=== PATIENT | female | born 1995 | race Caucasian/White ===

== ENCOUNTER 2019-12-17 10:17 | Outpatient (REF) | payer OTHER, SELFPAY ==
[2019-12-17 12:10] LABS: MANUAL DIFF FLAG NO
[2019-12-17 12:17] LABS: Basophils Percent Auto 0.3 % (0-2); Eosinophils Absolute Auto 0.1 X10*3/uL (0.0-0.4); Eosinophils Percent Auto 0.6 % (0-4); Hematocrit 36.9 % (37-47); Hemoglobin 10.7 g/dl (12.0-16.0); Imm Gran Abs Auto 0.02 X10*3/uL (0.00-0.03); Imm Gran Pct Auto 0.2 % (0.0-0.4); Lymphocytes Absolute Auto 2.8 X10*3/uL (1.2-4.9); Lymphocytes Percent Auto 26.3 % (20-40); Mean Corpuscular Hemoglobin 20.8 pg (27.0-33.0); Mean Corpuscular Volume 71.7 fL (80-98); Mean Platelet Volume 12.9 fL (9.4-12.3); Monocytes Absolute Auto 0.6 X10*3/uL (0.1-1.2); Monocytes Percent Auto 5.7 % (2-11); Neutrophils Absolute Auto 7.1 X10*3/uL (2.0-8.3); Neutrophils Percent Auto 66.9 % (45-73); Platelet Count 286 X10*3/uL (160-400); Red Blood Count 5.15 X10*6/uL (4.20-5.50); Red Cell Distribution Width 13.8 % (11.0-16.0); White Blood Count 10.6 X10*3/uL (4.8-10.8)
[2019-12-17 12:36] LABS: Alanine Aminotransferase 19 U/L (0-31); Albumin Level 4.2 g/dL (3.5-5.0); Alkaline Phosphatase 59 U/L (39-117); Anion Gap 10 (12-20); Aspartate Amino Transferase 15 U/L (5-31); Bilirubin Total 0.4 mg/dL (0.0-1.0); Blood Urea Nitrogen 7 mg/dL (9-16); Calcium 8.8 mg/dL (8.4-10.2); Carbon Dioxide 25 mmol/L (22-29); Chloride 107 mmol/L (96-108); Cholesterol 130 mg/dL; Estimated Glomerular Filt Rate > 60; Glucose Fasting 80 mg/dL (60-99); HDL Cholesterol 37 mg/dL; Iron 71 mcg/dL (30-160); LDL Cholesterol Calculated 81 mg/dl; Percent Iron Saturation 20 % (15-50); Potassium 4.4 mmol/l (3.3-5.1); Sodium 138 mmol/L (135-145); Total Iron Binding Capacity 355 mcg/dL (228-428); Total Protein 7.3 g/dL (6.5-8.0); Triglycerides 62 mg/dL; Unsaturated Iron Binding 284 ug/dL
[2019-12-17 12:58] LABS: Ferritin 16 ng/mL (10-122); Thyroid Stimulating Hormone 0.73 mIU/mL (0.32-4.0)
== END 2019-12-17 10:18 | disposition home or self-care (01) ==
LOC: HO.LAB 10:17
PROVIDERS: PCP Physician Assistant; Visit Provider Physician Assistant
DX: Z13.29 Encounter for screening for other suspected endocrine disorder (principal); Z13.220 Encounter for screening for lipoid disorders; D50.8 Other iron deficiency anemias
CPT/HCPCS: 36415; 80053; 80061; 82728; 83540; 84443; 85025

== ENCOUNTER 2019-12-21 11:27 | Outpatient (REF) | payer OTHER, SELFPAY ==
--- NOTE | 2019-12-21 | US_ITS ---
EXAMINATION: ULTRASOUND PELVIS COMPLETE. CLINICAL INFORMATION: Hirsutism. Rule out PCOS. Previous right oophorectomy. COMPARISON: None TECHNIQUE: Transabdominal and transvaginal ultrasound of the pelvis is performed. FINDINGS: The uterus is retroverted and retroflexed measuring 11.2 cm in length, 5.3 cm in AP and 6.0 cm in transverse dimension. The uterus has homogeneous echotexture except for 2 tiny calcifications in the myometrium. The endometrial thickness is 1.2 cm with echogenic debris seen within the endometrial canal from ongoing menstruation and bleeding. Small nabothian cysts are seen in the cervix. The right ovary has been removed and not visualized. There is mild fullness in the right adnexa. Left ovary measures 2.9 x 2.3 x 2.3 cm and volume 8.1 mL. Small amount of free fluid is seen adjacent to the ovary. IMPRESSION: Unremarkable uterus except for 2 tiny calcifications in the myometrium. There is echogenic blood products seen within the endometrial canal from current menstruation. Small nabothian cysts in the cervix. Right ovary removed. Mild fullness of the right adnexa. Left ovary is unremarkable. Minimal free fluid adjacent to left ovary.
== END 2019-12-21 11:28 | disposition home or self-care (01) ==
LOC: HO.US 11:27
PROVIDERS: PCP Physician Assistant; Visit Provider Physician Assistant
DX: L68.0 Hirsutism (principal)
CPT/HCPCS: 76830; 76856

== ENCOUNTER 2020-03-21 08:49 | Outpatient (REF) | payer OTHER, SELFPAY ==
[2020-03-21 09:06] LABS: COVID-19 Test Negative (Negative); IDNOW Serial# 55D5AD1C
== END 2020-03-21 08:50 | disposition home or self-care (01) ==
LOC: HO.EMPCOV 08:49
PROVIDERS: Visit Provider Internal Medicine
DX: Z20.822 Contact with and (suspected) exposure to COVID-19 (principal)
CPT/HCPCS: 36415; 87635; C9803

== ENCOUNTER 2020-06-12 07:40 | Outpatient (REF) | payer OTHER, SELFPAY ==
[2020-06-12 09:04] LABS: COVID-19 Test Negative (Negative)
== END 2020-06-12 07:41 | disposition home or self-care (01) ==
LOC: HO.EMPCOV 07:40
PROVIDERS: Visit Provider Internal Medicine
DX: Z20.822 Contact with and (suspected) exposure to COVID-19 (principal)
CPT/HCPCS: 36415; 87635; C9803

== ENCOUNTER 2020-06-14 08:24 | Outpatient (REF) | payer OTHER, SELFPAY ==
[2020-06-14 15:18] LABS: CT PCR NOT DETECTED (Not Detect.); NG PCR NOT DETECTED (Not Detect.)
[2020-06-15 08:57] LABS: BV Int Neg Control Negative (Negative); BV Int Pos Control Positive (Positive)
== END 2020-06-14 08:25 | disposition home or self-care (01) ==
LOC: HO.LAB 08:24
PROVIDERS: Visit Provider Obstetrics & Gynecology
DX: Z01.419 Encounter for gynecological examination (general) (routine) without abnormal findings (principal); N97.9 Female infertility, unspecified
CPT/HCPCS: 87480; 87491; 87510; 87591; 87660

== ENCOUNTER → 2021-03-28 13:06 | Outpatient (BNVA) | payer SELFPAY | PROVIDERS: PCP Physician Assistant; Visit Provider Physician Assistant Medical ==

== ENCOUNTER 2021-04-03 09:28 | Outpatient (REF) | payer OTHER, SELFPAY ==
[2021-04-03 10:23] LABS: Hemoglobin 10.8 g/dl (12.0-16.0); Mean Corpuscular HGB Conc 28.4 g/dl (31.0-35.0); Mean Corpuscular Hemoglobin 20.4 pg (27.0-33.0); Mean Corpuscular Volume 71.7 fL (80.0-98.0); Mean Platelet Volume 12.1 fL (9.4-12.3); Platelet Count 272 X10*3/uL (160-400); Red Cell Distribution Width 13.9 % (11.0-16.0)
[2021-04-03 10:36] LABS: Estimated Average Glucose 88 mg/dL; Hemoglobin A1c % 4.7 %
[2021-04-03 11:16] LABS: Alanine Aminotransferase 15 U/L (0-31); Albumin Level 4.4 g/dL (3.5-5.0); Alkaline Phosphatase 54 U/L (39-117); Anion Gap 10 (12-20); Aspartate Amino Transferase 17 U/L (5-31); Bilirubin Total 0.5 mg/dL (0.0-1.0); Blood Urea Nitrogen 8 mg/dL (9-16); Calcium 9.6 mg/dL (8.4-10.2); Carbon Dioxide 28 mmol/L (22-29); Chloride 106 mmol/L (96-108); Estimated Glomerular Filt Rate > 60; Glucose Fasting 83 mg/dL (60-99); Iron 52 mcg/dL (30-160); Percent Iron Saturation 13 % (15-50); Potassium 4.6 mmol/L (3.3-5.1); Sodium 139 mmol/L (135-145); Total Iron Binding Capacity 395 mcg/dL (228-428); Total Protein 7.6 g/dL (6.5-8.0); Unsaturated Iron Binding 343 ug/dL
[2021-04-03 11:36] LABS: TSH reflex Free T4 0.63 uIU/mL (0.32-4.0)
== END 2021-04-03 09:29 | disposition home or self-care (01) ==
LOC: HO.LAB 09:28
PROVIDERS: PCP Physician Assistant; Visit Provider Physician Assistant
DX: I10 Essential (primary) hypertension (principal); D50.9 Iron deficiency anemia, unspecified; Z13.1 Encounter for screening for diabetes mellitus
CPT/HCPCS: 36415; 80053; 83036; 83540; 84443; 85027

== ENCOUNTER 2021-07-16 13:22 | Outpatient (REF) | payer OTHER, SELFPAY ==
[2021-07-16 16:44] LABS: Anion Gap 10 (12-20); Blood Urea Nitrogen 9 mg/dL (9-16); Calcium 9.5 mg/dL (8.4-10.2); Carbon Dioxide 26 mmol/L (22-29); Chloride 107 mmol/L (96-108); Estimated Glomerular Filt Rate > 60; Glucose Random 114 mg/dL (60-115); Potassium 4.1 mmol/L (3.3-5.1); Sodium 139 mmol/L (135-145)
[2021-07-16 17:08] LABS: TSH reflex Free T4 0.65 uIU/mL (0.32-4.0)
[2021-07-16 17:36] LABS: Influenza A PCR NEGATIVE (Negative); Influenza B PCR NEGATIVE (Negative); Resp Syncy Virus RNA Qual PCR NEGATIVE (Negative); SARS COV2 PCR INHOUSE NEGATIVE (Negative)
== END 2021-07-16 13:23 | disposition home or self-care (01) ==
LOC: HO.HMGCLDS 13:22
PROVIDERS: Nurse Practitioner Family; Visit Provider Physician Assistant
DX: R60.9 Edema, unspecified (principal); R53.83 Other fatigue
CPT/HCPCS: 0241U; 36415; 80048; 84443

== ENCOUNTER 2021-08-21 11:37 | Outpatient (REF) | payer OTHER, SELFPAY | END 2021-08-21 11:38 | disposition home or self-care (01) | LOC: HO.LNP 11:37 | PROVIDERS: Visit Provider Nurse Practitioner Family | DX: R10.9 Unspecified abdominal pain (principal); R31.29 Other microscopic hematuria | CPT/HCPCS: 87086 ==

== ENCOUNTER 2021-08-27 11:26 | Outpatient (REF) | payer OTHER, SELFPAY ==
[2021-08-27 14:39] LABS: CT PCR NOT DETECTED (Not Detect.); NG PCR NOT DETECTED (Not Detect.)
== END 2021-08-27 11:27 | disposition home or self-care (01) ==
LOC: HO.LAB 11:26
PROVIDERS: Visit Provider Advanced Practice Midwife
DX: Z01.419 Encounter for gynecological examination (general) (routine) without abnormal findings (principal); Z11.3 Encounter for screening for infections with a predominantly sexual mode of transmission; Z11.8 Encounter for screening for other infectious and parasitic diseases
CPT/HCPCS: 87491; 87591; 88142

== ENCOUNTER 2021-09-06 14:05 | Outpatient (REF) | payer OTHER, SELFPAY ==
--- NOTE | ~2021-09-06 | US_ITS ---
EXAMINATION: US DIAGNOSTIC ULTRASOUND BREAST, RIGHT CLINICAL INFORMATION: Fullness/thickening noted upper right breast at time of routine clinical exam. No palpable concern noted by patient. No discharge. Age 26. No prior breast imaging. TC score 16%. COMPARISON: None. TECHNIQUE: Ultrasound right breast is targeted to the upper breast 10:00 through 2:00 position. FINDINGS: There is no focal suspicious finding. There is no cystic or solid mass, architectural abnormality, duct ectasia, or edema in the soft tissue planes. Results are discussed with the patient at time of visit. US/US breast RT limited IMPRESSION: Normal study. ASSESSMENT: BI-RADS 1: Negative RECOMMENDATION: 1. Patient should be managed based on the clinical impression. If clinically indicated, further evaluation may be considered with surgical consult. Decision to proceed with biopsy should be based on clinical grounds and degree of clinical concern. 2. Otherwise, routine annual screening mammography, beginning age 40, or earlier as clinical risk factors warrant. This patient's information was entered into a reminder system with a target due date for their next mammogram.
== END 2021-09-06 14:06 | disposition home or self-care (01) ==
LOC: HO.MAMMO 14:05
PROVIDERS: Visit Provider Physician Assistant
DX: N63.15 Unspecified lump in the right breast, overlapping quadrants (principal)
CPT/HCPCS: 76642

== ENCOUNTER 2022-11-20 08:37 | Outpatient (AMB) | payer OTHER, SELFPAY ==
--- NOTE | 2022-11-20 09:34 | AM.OFFWIN_ITS ---
Intake Vital Signs 11/20/22 09:41 Height 5 ft 8 in Weight 188 lb BMI 28.6 BP 120/80 Blood Pressure Location Rt brachial Position Sitting Pulse 124 H Pulse Source Pulse Oximeter Temp 98.3 F Temp Source Oral Pulse Oximetry (%) 97 Oxygen Delivery Method Room Air Intake Visit Reasons: EP, fever, back pain, headache ([phone]) Intake Note: Patient here for headache, fever,dizziness,back pain for about 3 days. Patient Tobacco Use Status: Never used Tobacco Allergies No Known Allergies [No Known Allergies*] Allergy (Verified 11/20/22 09:34) Medication List - Last Reconciled 11/20/22 by Nadir Farr MD ferrous fumarate 325 mg PO DAILY 90 days PNV 119-iron fum-folic acid 29 mg iron- 1 mg 1 tab PO DAILY 90 days Do you need a note to return to daycare/school/sports/work: No HPI EP, fever, back pain, headache ([phone]) HPI Details Patient presents for a sick visit. Reporting symptoms of sinus congestion, sore throat and difficulty swallowing. Low-grade fever. No family member is sick. No recent travel. Patient reports symptoms of malaise and fatigue. 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 Sexual orientation: Straight/Heterosexual Gender identity: Female Cognitive needs: No Hearing needs: No Vision needs: Yes (glasses) Physical Exam Vital Signs: Last Vital Signs Temp 98.3 F 11/20/22 09:41 Pulse 124 H 11/20/22 09:41 BP 120/80 11/20/22 09:41 Pulse Ox 97 11/20/22 09:41 Oxygen Delivery Method Room Air 11/20/22 09:41 BMI result Body Mass Index 28.6 Const General: cooperative and healthy appearing Nutritional Appearance: well nourished Orientation/consciousness: patient oriented x3 Limitations: no limitations HEENT Head: Yes normal to inspection Eyes General: appearance normal, both eyes and all related structures Neck Neck: Yes normal visual inspection Chest Chest palpation & inspection: normal palpation of entire chest wall Resp Effort & Inspection: normal respiratory effort Neuro General: patient oriented x3 Assessment & Plan Assessment & Plan (1) Upper respiratory tract infection: Code(s): J06.9 - Acute upper respiratory infection, unspecified Qualifiers: URI type: unspecified viral URI Qualified Code(s): J06.9 - Acute upper respiratory infection, unspecified Plan: Antibiotics ordered. Increase fluid intake. Tylenol for aches and pains. If symptoms worsen, follow-up here for a recheck. Coding Level of Care Code Est Pt Level 3 (72469) Diagnoses Viral upper respiratory tract infection J06.9 URI type: unspecified viral URI
[2022-11-20 09:41] VITALS: BP 120/80; PULSE 124; TEMP 36.8; O2SAT 97; BMI 28.6
== END 2022-11-20 10:33 | disposition home or self-care (01) ==
PROVIDERS: PCP Physician Assistant; Visit Provider Internal Medicine
DX: J06.9 Acute upper respiratory infection, unspecified (principal)
CPT/HCPCS: 99213

== ENCOUNTER 2023-02-14 14:45 | Outpatient (AMB) | payer OTHER, SELFPAY ==
--- NOTE | 2023-02-14 15:08 | MHC.OFFVIS ---
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 Doing well with no concerns. She tries to eat healthy, no exercise. Regular monthly menses. Currently is sexually active. Not taking control, she is planning a future . History of IVF, right salpingectomy, left ectopic, SAB x2. She denies vaginal itching and irritation. STI screening offered; she declines. Denies family history of breast, ovarian or colon cancer. Last pap smear 2021, negative. [facility] Medical History (Updated 02/14/23 @ 15:26 by Elizabeth Desai CNM) Female infertility Anemia Surgical History (Updated 02/14/23 @ 15:27 by Elizabeth Desai CNM) History of right oophorectomy Family History Mother High blood pressure Pre-diabetes Father High blood pressure, Onset Age: 60 Heart attack Maternal Grandmother Colon cancer, Onset Age: 73 Uterine cancer Family/Other Breast cancer Social History Housing: House Alcohol intake: never Patient Tobacco Use Status: Never used Tobacco e-Cigarette/Vaping Use: Never Used Second Hand Smoke Exposure: No service: No Current occupational status: employed 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 Sexual orientation: Straight/Heterosexual Gender identity: Female Cognitive needs: No Hearing needs: No Vision needs: Yes (glasses) Female Reproductive History Menstrual Date of last menstrual period: 02/04/23 Total pregnancies: 3 Full term: 1 Number of Living Children: 1 Ab spontaneous: 2 Date of last pap smear: 08/28/21 Review of Systems Const All systems reviewed & are unremarkable except as noted in HPI and below Reports as per HPI Eyes Reports no additional complaints ENT Reports no additional complaints Card Reports no additional complaints Resp Reports no additional complaints GI Reports as per HPI and Reports no additional complaints Reports as per HPI Musc Reports no additional complaints Skin/Breast Reports as per HPI Neuro Reports no additional complaints Psych Reports no additional complaints Endo Reports no additional complaints Rolf/Lymph Reports no additional complaints Aller/Immun Reports no additional complaints Physical Exam Vital Signs: Last Vital Signs BP 106/60 02/14/23 15:10 BMI result Body Mass Index 28.9 Const General: cooperative, healthy appearing, no acute distress, well developed and alert Orientation/consciousness: patient oriented x3 HEENT Head: Yes normal to inspection Eyes General: appearance normal, both eyes and all related structures Neck Neck: Yes normal visual inspection Thyroid: Thyroid normal Chest Chest palpation & inspection: normal inspection of the chest and other (no puckering, dimpling, peau de orange, retraction, discharge, masses) Breast/axilla inspection: normal inspection of the breasts Breast/axilla palpation: normal palpation of the breasts Resp Effort & Inspection: normal respiratory effort GI Inspection: Yes normal to inspection Palpation (GI): Soft to palpation Rectal Exam - Female: deferred General: Yes bladder normal to palpation External Female Exam: normal external appearance and normal appearance of the urethra Speculum Exam - Vagina: normal appearance of the vagina, normal palpation and normal vaginal discharge Speculum Exam - Cervix: normal appearance of the cervix and normal palpation Bimanual exam- vagina & uterus: normal bimanual exam, normal palpation, uterine size normal, bladder normal to palpation, normal palpation and non-tender Bimanual Exam- Adnexa, other: no masses Skin General skin exam: no rashes or lesions noted Rashes: no rashes Neuro General: patient oriented x3 Cognition (Neuro): normal cognition Extrem General: Yes normal to inspection Psych Attitude: cooperative Thought process: Normal thought process present Assessment & Plan Assessment & Plan (1) Encounter for well woman exam with routine gynecological exam: Code(s): Z01.419 - Encounter for gynecological examination (general) (routine) without abnormal findings Plan Discussed: Current recommendations for pap smears per ASCCP guidelines. Breast awareness and periodic breast exams. Maintain a healthy lifestyle including a well balanced diet and routine exercise. Advised if she misses her period to do a home test if positive to call the office for evaluation right away. Continue with vitamins. All of her questions and concerns were addressed to the best of my ability. RTO in one year for annual loop drier operator examination. This note is constructed using voice recognition software. While every effort has been made to ensure accuracy, machinist mate errors may have been included. Medications: Refilled PNV 119-iron fum-folic acid 29 mg iron- 1 mg 1 tab PO DAILY 90 tabs 4RF 90 days Coding Level of Care Code Est Pt Prev Care 18-39y(80164) Diagnoses Encounter for well woman exam with routine gynecological exam Z01.419
[2023-02-14 15:10] VITALS: BP 106/60; BMI 28.9
== END 2023-02-14 15:35 | disposition home or self-care (01) ==
LOC: HO.HWS 14:45
PROVIDERS: PCP Physician Assistant; Visit Provider Advanced Practice Midwife
DX: Z01.419 Encounter for gynecological examination (general) (routine) without abnormal findings (principal)
CPT/HCPCS: 99395

== ENCOUNTER → 2023-02-14 14:45 | Outpatient (BNVA) | payer OTHER, SELFPAY | PROVIDERS: PCP Physician Assistant; Visit Provider Advanced Practice Midwife | DX: Z01.419 Encounter for gynecological examination (general) (routine) without abnormal findings (principal) | CPT/HCPCS: 99395 ==

== ENCOUNTER 2023-05-21 10:20 | Outpatient (AMB) | payer OTHER, SELFPAY ==
--- NOTE | 2023-05-21 10:20 | MHC.PC.OV ---
Intake Visit Reasons: constant dizziness/? vertigo Behavioral Health Associate Required: No Information Interpreted: non-clinical & clinical Pediatric Clinical Nurse Specialist: Not Required per policy Accompanied by: Self / Same As Patient Allergies No Known Allergies [No Known Allergies*] Allergy (Verified 05/21/23 10:21) Tobacco use date assessed: 05/21/23 Dental Screening Dental Screen Date: 05/21/23 Did you have a dental visit in the last 12 months?: Yes Did you have a dental problem in the last 6 months where you did not have access to dental care?: No Was dental information given to patient?: Patient has dentist HPI constant dizziness/? vertigo HPI Details Patient is a 27-year-old female being evaluated today via telephone only. Patient has a past medical history significant for iron-deficiency anemia. She reports since yesterday she has been feeling dizzy since she is gotten up in the morning. She does report the dizziness does get worse with changes in head Movements and body position. She has not tried any medication at this time. Otherwise does not have any visual disturbances, facial droop, focal neurological deficits or slurred speech. 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 1. Little interest or pleasure in doing things: not at all 2. Feeling down, depressed, or hopeless: not at all 3. Trouble falling or staying asleep, or sleeping too much: not at all 4. Feeling tired or having little energy: not at all 5. Poor appetite or overeating: not at all 6. Feeling bad about yourself - or that you are a failure or have let yourself or your family down: not at all 7. Trouble concentrating on things, such as reading the newspaper or watching television: not at all 8. Moving or speaking so slowly that other people could have noticed. Or the opposite - being so fidgety or restless that you have been moving around a lot more than usual: not at all 9. Thoughts that you would be better off or of hurting yourself in some way: not at all Total score: 0 Depression Screening Interpretation: Negative Depression Screening Done: Yes 27895 - PHQ-9 Billing: Yes Source: Developed by Drs. Tyrone Beltran, Anna Rodríguez, Cooper Vela and colleagues, with an educational larissa from [email or web address]. Thrive Questionnaire Date Thrive assessed: 05/21/23 I am a: Patient What is your living situation today?: I have a steady place to live Within the past 12 months, did the food you bought not last and you didn't have the money to get more?: Never true Within the past 12 months, did you worry whether your food would run out before you got money to buy more?: Never true Do you have trouble paying for medicines?: No Do you have trouble getting transportation to medical appointments?: No Do you have trouble paying your heating and electricity bill?: No Do you have trouble taking care of your child, family member or friend?: No Do you have trouble with day-to-day activities such as bathing, preparing meals, shopping, managing finances, etc.?: No Are you currently unemployed and looking for a job?: No Are you interested in more education?: No Please select the resources that you would like help with: None Currently or been in a relationship where the following occur: no concerns reported THRIVE Score: 0 AUDIT C Alcohol Use Questionnaire (AUDIT-C) 1. How often do you have a drink containing alcohol?: Never 3. How often do you have six or more drinks on one occasion?: Never Total Score: 0 JOSE-7 AMB Questionnaire JOSE-7 Date JOSE - 7 assessed: 05/21/23 Feeling nervous, anxious, or on edge: 0 = Not at all Not being able to stop or control worryin = Not at all Worrying too much about different things: 0 = Not at all Trouble relaxin = Not at all Being so restless that it is hard to sit still: 0 = Not at all Becoming easily annoyed or irritable: 0 = Not at all Feeling afraid as if something awful might happen: 0 = Not at all Total JOSE-7 score (0-4 normal; 5-9 mild; 10-14 moderate; 15-21 severe): 0 Source: Developed by Drs. Tyrone Beltran, Anna Rodríguez, Cooper Vela and colleagues, with an educational larissa from [email or web address]. JOSE-7 Assessment Billing JOSE-7 Assessment Tool: JOSE-7 Assessment 81923 Review of Systems Const Denies headache(s) Eyes Denies loss of vision ENT Reports vertigo, Reports dizziness, Denies headache(s) and Denies sore throat Card Denies chest pain, Denies leg edema and Denies lightheadedness Resp Denies cough, Denies hemoptysis and Denies wheezing GI Denies abdominal pain, Denies melena, Denies constipation, Denies diarrhea and Denies vomiting Denies urinary frequency, Denies dysuria and Denies urinary urgency Musc Denies arthralgias, Denies joint swelling, Denies numbness and Denies tingling Neuro Denies behavioral changes, Reports vertigo, Reports dizziness, Denies headache(s), Denies loss of vision, Denies memory loss, Denies numbness and Denies tingling Psych Denies anxiety, Denies behavioral changes, Denies depression, Denies memory loss and Denies panic attacks Rolf/Lymph Denies easy bleeding and Denies easy bruising Aller/Immun Denies wheezing Physical exam (Primary Care) Tobacco/Smoking Status: Tobacco use Status Tobacco use date assessed 05/21/23 05/21/23 10:22 Patient Tobacco Use Status Never used Tobacco 05/21/23 10:22 e-Cigarette/Vaping Use Never Used 05/21/23 10:22 PHQ-9: PHQ-9 Score PHQ-9: Total score 0 05/21/23 10:22 Depression Screening Interpretation: Negative Thrive Assessment: Date of Thrive Assessment Date Thrive assessed 05/21/23 05/21/23 10:22 Currently or been in a relationship where the following occur: no concerns reported Telehealth Telehealth Location of provider rendering services: practice address Location of patient: address on file Patient Identification confirmed using: Name, : Yes Telehealth method: voice only Patient verbally consented to treatment: Yes Patient verbally consented to billing insurance company: Yes Patient informed of any privacy concerns related to visit: Yes Minutes spent on Phone/Video with Pt.: 11 Assessment and Plan Assessment & Plan (1) Vertigo: Code(s): R42 - Dizziness and giddiness Plan: Patient's signs and symptoms most consistent with a benign positional paroxysmal vertigo. Will supply patient with meclizine to use temporarily. Advised on Quentin maneuvers to be done at home if fails will consider formal vestibular therapy. Will also send for labs to evaluate her blood levels as she does have history of iron-deficiency anemia. Orders: Orders IRON PROFILE Today D50.9 - Iron deficiency anemia, unspecified Complete Blood Count no Diff Today D50.9 - Iron deficiency anemia, unspecified Basic Metabolic Panel Today R42 - Dizziness and giddiness Medications: New meclizine 25 mg PO TID 14 days 42 tabs 0RF R42 - Dizziness and giddiness Coding Level of Care Code Tele Est Pt Level 3 (06534) Diagnoses Vertigo R42 Additional Codes JOSE-7 Assessment Billing - JOSE-7 Assessment Tool: JOSE-7 Assessment 43835 ([id number])
== END 2023-05-21 12:22 | disposition home or self-care (01) ==
LOC: HO.HMGH 10:20
PROVIDERS: PCP Physician Assistant; Visit Provider Physician Assistant
DX: R42 Dizziness and giddiness (principal)
CPT/HCPCS: 99213

== ENCOUNTER 2023-05-22 15:22 | Outpatient (REF) | payer OTHER, SELFPAY ==
[2023-05-22 16:17] LABS: Hemoglobin 11.8 g/dl (12.0-16.0); Mean Corpuscular HGB Conc 29.5 g/dl (31.0-35.0); Mean Corpuscular Hemoglobin 21.1 pg (27.0-33.0); Mean Corpuscular Volume 71.6 fL (80.0-98.0); Mean Platelet Volume 11.8 fL (9.4-12.3); Platelet Count 257 X10*3/uL (160-400); Red Blood Count 5.59 X10*6/uL (4.20-5.50); Red Cell Distribution Width 14.3 % (11.0-16.0); White Blood Count 9.1 X10*3/uL (4.8-10.8)
[2023-05-22 16:38] LABS: Anion Gap 14 (12-20); Blood Urea Nitrogen 9 mg/dL (9-16); Calcium 9.8 mg/dL (8.4-10.2); Carbon Dioxide 25 mmol/L (22-29); Chloride 105 mmol/L (96-108); Estimated Glomerular Filt Rate > 60; Glucose Random 94 mg/dL (60-115); Iron 70 mcg/dL (30-160); Percent Iron Saturation 25 % (15-50); Potassium 3.7 mmol/L (3.3-5.1); Sodium 140 mmol/L (135-145); Total Iron Binding Capacity 275 mcg/dL (228-428); Unsaturated Iron Binding 205 ug/dL
== END 2023-05-22 15:23 | disposition home or self-care (01) ==
LOC: HO.LAB 15:22
PROVIDERS: PCP Physician Assistant; Visit Provider Physician Assistant
DX: D50.9 Iron deficiency anemia, unspecified (principal); R42 Dizziness and giddiness
CPT/HCPCS: 36415; 80048; 83540; 85027

== ENCOUNTER 2023-09-26 14:24 | Outpatient (AMB) | payer OTHER, SELFPAY ==
[2023-09-26 14:28] VITALS: BP 116/68; BMI 27.1
--- NOTE | 2023-09-26 14:28 | MHC.OFFVIS ---
Vital Signs 09/26/23 14:28 Height 5 ft 8 in Weight 178 lb BMI 27.1 BP 116/68 Intake Visit Reasons: Control Consult Compensation Manager Required: No Compensation Manager Services: Compensation Manager Present Information Interpreted: clinical only Sieve Maker: Sieve Maker Present Allergies No Known Allergies [No Known Allergies*] Allergy (Verified 09/26/23 14:30) Medication List - Last Reconciled 09/26/23 by Lizet Peoples CNM aspirin 81 mg PO DAILY ferrous fumarate 325 mg PO DAILY 90 days levothyroxine (Synthroid) 25 mcg PO DAILY PNV 119-iron fum-folic acid 29 mg iron- 1 mg 1 tab PO DAILY 90 days Is last menstrual period known: Yes Last menstrual period: 09/22/23 HPI HPI Control Consult: Details: Patient is here to discuss control. The last visit in her chart reference to history of infertility and that she was going to go to [facility] for IVF. She tells me that she went to [facility] infertility had IU salas x3 and IBS they could not find the cause of her infertility there was nothing wrong with her tubes. She eventually did get but she had a miscarriage and they were able to do genetic studies and said the baby was normal in female in no cause was found she miscarried at 3 months. She later on got as again and had an ectopic . After that she really wanted to get so she went to the [place] and she saw specialists down there who did a full evaluation on her and told her that she had PCOS and also that she had a thyroid issue and she ended up with a thyroid biopsy and she is on thyroid medication now she was also found to have a blood clotting disorder and she is now on baby aspirin every day to manage this. She was told that when she gets she will need injections. She is working on losing weight she and her broke up she said the relationship had challenges anyway and says that she really really want to the baby at time she thinks that she would like to try for a baby again maybe next year but she is with a new partner now and while things are good she thinks this is not the right time yet. She was thinking maybe about control pills she had had the hormone free IUD for many years in the past and she got her regular periods with it she is aware of when she ovulates because of her length of time trying for a . She gets her periods about every 29 days she last started her period on this past Friday this is now day 5 of cycle today. She does not have migraine headaches she does not have any other contraindications who OCPs because she is trying to lose weight and not gain it Depo-Provera and Nexplanon would not be recommended because she is thinking about possibly trying for another within the year a Mirena IU S may simply delay return to fertility and it would take a while to order a ParaGard IUD though that maybe consideration for her future as well. Because of her clotting issues I did discuss the concern that it would be salas to avoid combination control pills because of a relative contraindication. Therefore the best alternative for now would probably be either condoms or progestin only control pills I did review with her the signs of a blood clot and the risks of a thromboembolic event. And if she ever got any symptoms she should go the emergency room show the pills she is on and show them her phone with the labs from the [facility] as well. She intends to make an appointment with her primary care provider Isak Thompson very soon and have a full visit with him so that he can be apprised of all of her new found information is well. She is going to start the control pills today 1 pill every single day, had recommend to her that when she wants to get she just stops the control pills at the end of a pack. I review that these pills do not dictate when she is going to get a PA and they are rather on forgiving in terms of missed pills. If she is going to be seeing her primary within the next 3 months that was suffice because her blood pressure will be taken then periods in addition should she ever get she should seek care [facility] right away and if she did decide that she needed assistance with fertility she should return to [facility] which I believe is now aligned with [facility]. She is continuing on her multivitamins with folic acid as well. [facility] Medical History (Updated 09/26/23 @ 15:37 by Lizet Peoples CNM) Female infertility Anemia Surgical History (Updated 09/26/23 @ 15:17 by Lizet Peoples CNM) History of right oophorectomy Family History Mother High blood pressure Pre-diabetes Father High blood pressure, Onset Age: 60 Heart attack Maternal Grandmother Colon cancer, Onset Age: 73 Uterine cancer Family/Other Breast cancer Social History Housing: House Alcohol intake: never Patient Tobacco Use Status: Never used Tobacco e-Cigarette/Vaping Use: Never Used Second Hand Smoke Exposure: No service: No Current occupational status: employed 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 Sexual orientation: Straight/Heterosexual Gender identity: Female Cognitive needs: No Hearing needs: No Vision needs: Yes (glasses) Female Reproductive History Menstrual Duration of menses: 3-5 days Date of last menstrual period: 09/22/23 control method: none Total pregnancies: 3 Full term: 1 Date of last pap smear: 08/28/21 (neg,2019,WNL) History of abnormal pap smear: No Physical Exam Vital Signs: Last Vital Signs BP 116/68 09/26/23 14:28 BMI result Body Mass Index 27.1 Assessment & Plan Assessment & Plan (1) Female infertility: Comment: having IVF in October at [facility],(states IUI and IVF did not work, then got miscarried genetics studies said it was female, then she had ectopic, thin went for full eval in the [place] was this past year, currently desires contraception (09/26/23.) was told [place] had clotting disorder and [place], has her labs in her phone. Code(s): N97.9 - Female infertility, unspecified Category: Medical (2) PCOS (polycystic ovarian syndrome): Code(s): E28.2 - Polycystic ovarian syndrome Category: Medical (3) Blood clotting disorder: Comment: Some of her anticardiolipin antibodies among other tests were abnormal, done in the [place], results on her phone patient has been told to take a baby aspirin every day which she is.. Code(s): D68.9 - Coagulation defect, unspecified Category: Medical (4) Infertility: Category: Medical (5) control counseling: Code(s): Z30.09 - Encounter for other general counseling and advice on contraception Category: Medical (6) Counseling for initiation of control method: Code(s): Z30.09 - Encounter for other general counseling and advice on contraception Category: Medical Plan Patient is here to discuss control. The last visit in her chart reference to history of infertility and that she was going to go to [facility] for IVF. She tells me that she went to [facility] infertility had IU salas x3 and IBS they could not find the cause of her infertility there was nothing wrong with her tubes. She eventually did get but she had a miscarriage and they were able to do genetic studies and said the baby was normal in female in no cause was found she miscarried at 3 months. She later on got as again and had an ectopic . After that she really wanted to get so she went to the [facility] and she saw specialists down there who did a full evaluation on her and told her that she had PCOS and also that she had a thyroid issue and she ended up with a thyroid biopsy and she is on thyroid medication now she was also found to have a blood clotting disorder and she is now on baby aspirin every day to manage this. She was told that when she gets she will need injections. She is working on losing weight she and her broke up she said the relationship had challenges anyway and says that she really really want to the baby at time she thinks that she would like to try for a baby again maybe next year but she is with a new partner now and while things are good she thinks this is not the right time yet. She was thinking maybe about control pills she had had the hormone free IUD for many years in the past and she got her regular periods with it she is aware of when she ovulates because of her length of time trying for a . She gets her periods about every 29 days she last started her period on this past Friday this is now day 5 of cycle today. She does not have migraine headaches she does not have any other contraindications who OCPs because she is trying to lose weight and not gain it Depo-Provera and Nexplanon would not be recommended because she is thinking about possibly trying for another within the year a Mirena IU S may simply delay return to fertility and it would take a while to order a ParaGard IUD though that maybe consideration for her future as well. Because of her clotting issues I did discuss the concern that it would be salas to avoid combination control pills because of a relative contraindication. Therefore the best alternative for now would probably be either condoms or progestin only control pills I did review with her the signs of a blood clot and the risks of a thromboembolic event. And if she ever got any symptoms she should go the emergency room show the pills she is on and show them her phone with the labs from the [place] as well. She intends to make an appointment with her primary care provider Isak Thompson very soon and have a full visit with him so that he can be apprised of all of her new found information is well. She is going to start the control pills today 1 pill every single day, had recommend to her that when she wants to get she just stops the control pills at the end of a pack. I review that these pills do not dictate when she is going to get a PA and they are rather on forgiving in terms of missed pills. If she is going to be seeing her primary within the next 3 months that was suffice because her blood pressure will be taken then periods in addition should she ever get she should seek care [facility] right away and if she did decide that she needed assistance with fertility she should return to [facility] which I believe is now aligned with [facility]. She is continuing on her multivitamins with folic acid as well. Medications: New norethindrone (contraceptive) 0.35 mg PO DAILY 84 tabs 3RF Coding Level of Care Code Est Pt Level 3 (76349) Diagnoses Female infertility N97.9 PCOS (polycystic ovarian syndrome) E28.2 Blood clotting disorder D68.9 Infertility control counseling Counseling for initiation of control method
== END 2023-09-26 15:12 | disposition home or self-care (01) ==
LOC: HO.HWSM 14:24
PROVIDERS: PCP Physician Assistant; Visit Provider Advanced Practice Midwife
DX: N97.9 Female infertility, unspecified (principal); E28.2 Polycystic ovarian syndrome; D68.9 Coagulation defect, unspecified; Z30.09 Encounter for other general counseling and advice on contraception
CPT/HCPCS: 99213

== ENCOUNTER → 2023-09-26 14:24 | Outpatient (BNVA) | payer OTHER, SELFPAY | PROVIDERS: PCP Physician Assistant; Visit Provider Advanced Practice Midwife | DX: Z30.09 Encounter for other general counseling and advice on contraception (principal); N97.9 Female infertility, unspecified; E28.2 Polycystic ovarian syndrome; D68.9 Coagulation defect, unspecified; Z90.721 Acquired absence of ovaries, unilateral | CPT/HCPCS: 99212 ==

== ENCOUNTER 2023-11-12 15:54 | Outpatient (AMB) | payer OTHER, SELFPAY ==
--- NOTE | 2023-11-12 15:56 | A.OFFPC_ITS ---
Vital Signs 11/12/23 16:05 Height 5 ft 8 in Weight 164 lb 4 oz BMI 25.0 BP 118/68 Blood Pressure Location Lt brachial Position Sitting Intake Visit Reasons: annual exam Intake Note: Patient is here today for a physical. Consulting Property Manager Required: No Accompanied by: Self / Same As Patient Allergies No Known Allergies [No Known Allergies*] Allergy (Verified 11/12/23 16:11) Medication List - Last Reconciled 11/12/23 by Isak Thompson PA-C aspirin 81 mg PO DAILY ferrous fumarate 325 mg PO DAILY 90 days norethindrone (contraceptive) 0.35 mg PO DAILY PNV 119-iron fum-folic acid 29 mg iron- 1 mg 1 tab PO DAILY 90 days selenium 200 mcg PO DAILY Tobacco use date assessed: 05/21/23 Dental Screening Dental Screen Date: 05/21/23 HPI annual exam HPI Details Patient is a 28-year-old female here today for annual physical . . Sherrell ocampo has a past history significant for iron deficiency anemia. Currently undergoing infertility treatment and has gotten IVF. She has had multiple miscarriages. Patient had travel to [facility] and had infertility workup that did reveal a thyroid nodule and was started on selenium 200 mcg. Was also found to have a thrombophilia to which she was started baby aspirin. She is interested in establishing care with a knitter mechanic [place]. Due to what is been going on in her life she has been very depressed, today's PHQ-9 score fairly high. She is interested in mental health therapy and starting medication for depression. Will start sertraline 50 mg and follow-up in the next 4-5 weeks to evaluate the effectiveness of medication for ? .. CABIN SERVICE AGENT: [place] CABIN SERVICE AG[place] [facility] [place] ? Vaccine: UTD with Tdap,? UTD with COVID , need flu vaccine. [facility] Medical History Female infertility Anemia Surgical History History of right oophorectomy Family History (Updated 11/12/23 @ 16:22 by Isak Thompson PA-C) Mother High blood pressure Pre-diabetes Father High blood pressure, Onset Age: 60 Heart attack Blood clotting disorder Maternal Grandmother Colon cancer, Onset Age: 73 Uterine cancer Family/Other Breast cancer Maternal Grandfather Blood clotting disorder Social History Housing: House Alcohol intake: never Patient Tobacco Use Status: Never used Tobacco e-Cigarette/Vaping Use: Never Used Second Hand Smoke Exposure: No service: No Current occupational status: employed 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 1. Little interest or pleasure in doing things: more than half the days 2. Feeling down, depressed, or hopeless: nearly every day 3. Trouble falling or staying asleep, or sleeping too much: nearly every day 4. Feeling tired or having little energy: nearly every day 5. Poor appetite or overeating: nearly every day 6. Feeling bad about yourself - or that you are a failure or have let yourself or your family down: more than half the days 7. Trouble concentrating on things, such as reading the newspaper or watching television: nearly every day 8. Moving or speaking so slowly that other people could have noticed. Or the opposite - being so fidgety or restless that you have been moving around a lot more than usual: not at all 9. Thoughts that you would be better off or of hurting yourself in some way: not at all Total score: 19 Depression Screening Interpretation: Positive Depression Screening Follow-up: Existing condition, New Medication prescribed and Community Mental Health Worker F/U Depression Screening Done: Yes 07248 - PHQ-9 Billing: Yes Source: Developed by Drs. Tyrone Beltran, Anna Rodríguez, Cooper Vela and colleagues, with an educational larissa from [employer]. Thrive Questionnaire Date Thrive assessed: 11/12/23 I am a: Patient What is your living situation today?: I have a steady place to live Within the past 12 months, did the food you bought not last and you didn't have the money to get more?: Never true Within the past 12 months, did you worry whether your food would run out before you got money to buy more?: Never true Do you have trouble paying for medicines?: No Do you have trouble getting transportation to medical appointments?: No Do you have trouble paying your heating and electricity bill?: No Do you have trouble taking care of your child, family member or friend?: No Do you have trouble with day-to-day activities such as bathing, preparing meals, shopping, managing finances, etc.?: No Are you currently unemployed and looking for a job?: No Are you interested in more education?: Yes Please select the resources that you would like help with: Food and [employer] Currently or been in a relationship where the following occur: No concerns reported THRIVE Score: 0 AUDIT C Alcohol Use Questionnaire (AUDIT-C) 1. How often do you have a drink containing alcohol?: Never Total Score: 0 JOSE-7 AMB Questionnaire JOSE-7 Date JOSE - 7 assessed: 11/12/23 Feeling nervous, anxious, or on edge: 1 = Several days Not being able to stop or control worryin = Several days Worrying too much about different things: 1 = Several days Trouble relaxin = Several days Being so restless that it is hard to sit still: 0 = Not at all Becoming easily annoyed or irritable: 1 = Several days Feeling afraid as if something awful might happen: 0 = Not at all Total JOSE-7 score (0-4 normal; 5-9 mild; 10-14 moderate; 15-21 severe): 5 Source: Developed by Drs. Tyrone Beltran, Anna Rodríguez, Cooper Vela and colleagues, with an educational larissa from [employer]. JOSE-7 Assessment Billing JOSE-7 Assessment Tool: JOSE-7 Assessment 63147 Review of Systems Const Denies body aches, Denies chills, Denies excessive sweating, Denies fatigue, Denies fever(s) and Denies headache(s) Eyes Denies blurry vision ENT Denies dysphagia, Denies vertigo, Denies dizziness, Denies headache(s), Denies hearing loss and Denies tinnitus Card Denies chest pain, Denies chest pain with activity, Denies syncope, Denies irregular heart rhythm and Denies dyspnea Resp Denies chest congestion, Denies cough, Denies hemoptysis, Denies dyspnea and Denies wheezing GI Denies abdominal pain, Denies melena, Denies hematochezia, Denies coffee ground emesis, Denies dysphagia, Denies diarrhea, Denies nausea and Denies vomiting Denies urinary frequency, Denies dysuria, Denies urinary hesitancy and Denies urinary urgency Musc Denies arthralgias, Denies limited range of motion, Denies muscle cramps and Denies muscle weakness Skin/Breast Denies rash and Denies skin ulcer Neuro Denies Abnormal speech present, Denies confusion, Denies vertigo, Denies dizziness, Denies syncope, Denies headache(s), Denies memory loss and Denies seizure-like activity Psych Denies anxiety, Denies confusion, Denies depression, Denies memory loss, Denies panic attacks and Denies paranoia Endo Denies excessive sweating, Denies fatigue, Denies flushing, Denies polydipsia and Denies polyuria Aller/Immun Denies wheezing Physical exam (Primary Care) Tobacco/Smoking Status: Tobacco use Status Tobacco use date assessed 05/21/23 11/12/23 15:58 Patient Tobacco Use Status Never used Tobacco 11/12/23 15:58 e-Cigarette/Vaping Use Never Used 11/12/23 15:58 PHQ-9: PHQ-9 Score PHQ-9: Total score 19 11/12/23 15:58 Depression Screening Interpretation: Positive Depression Screening Follow-up: Existing condition, New Medication prescribed and Community Mental Health Worker F/U Thrive Assessment: Date of Thrive Assessment Date Thrive assessed 11/12/23 11/12/23 15:58 Currently or been in a relationship where the following occur: No concerns reported Const General: cooperative, comfortable, no acute distress, alert and awake; No confusion Orientation/consciousness: oriented to person, oriented to place, patient oriented x3 and No confusion HENMT Head: Yes normocephalic Ears: external ears normal and TM's normal bilaterally Face and sinus: No sinus tenderness Mouth: Normal oral and palatal mucosa present and tongue normal Teeth and gingiva: dentition normal and gingiva normal Throat: Yes posterior oropharynx normal, Yes tonsils normal and Yes uvula midline Eyes Conjunctivae: conjunctivae normal Sclerae: sclerae normal Pupils: Equal, round and reactive pupils present EOM: EOMs intact bilaterally Direct Ophthalmoscopy: No no photophobia Neck Neck: Yes no lymphadenopathy, No tender and Yes no JVD Thyroid: Thyroid normal Carotids: no bruits Chest Chest palpation & inspection: no tenderness Resp Effort & Inspection: normal respiratory effort, no audible wheezes, not labored and no stridor Auscultation: no crackles, no rales, no rhonchi and no wheezes Cardio Jugular venous distension: no JVD Rate: regular rate, not bradycardic and not tachycardic Rhythm: regular rhythm Bruits: no carotid bruits Peripheral pulses: Peripheral pulses 2+ throughout GI Inspection: Yes normal to inspection, No abdominal wall ecchymosis and No visi ble herniation Palpation (GI): Soft to palpation, nontender, no guarding, not rigid and No hepatosplenomegaly present Auscultation: normoactive bowel sounds General: Yes no CVA tenderness Back/Spine/Pelvis Back: no CVA tenderness and No back tenderness Cervical Spine: cervical ROM normal Thoracic/Lumbar Spine: thoracic and lumbar spine normal to inspection, straight leg raise negative bilaterally, No thoraco-lumbar ROM limited and No lumbar spinal tenderness Skin Lesions: no lesions Rashes: no rashes Wounds: no wounds Neuro General: oriented to person, oriented to place, patient oriented x3, CN's II-XI intact bilaterally and No confusion Cranial nerves: Yes Equal, round and reactive pupils present and Yes Normal accommodation reflex present Cognition (Neuro): normal cognition Speech: No Abnormal speech present Gait exam (Neuro): Normal gait present Motor exam (neuro): 5/5 motor strength present throughout Extrem Right upper extremity: full ROM; no cyanosis Left upper extremity: full ROM; no cyanosis Right lower extremity: no edema Left lower extremity: no edema Psych Appearance: grossly normal Mental Status: mental status grossly normal Affect: normal affect Attitude: cooperative Thought process: Normal thought process present Assessment and Plan Assessment & Plan (1) Annual physical exam: Code(s): Z00.00 - Encounter for general adult medical examination without abnormal findings (2) Thyroid nodule: Code(s): E04.1 - Nontoxic single thyroid nodule Plan: Patient was found to a large thyroid nodule while being worked up in [facility] for infertility. Her TSH has been stable. She was started (3) Thrombophilia: Code(s): D68.59 - Other primary thrombophilia Plan: Patient was found to have a thrombophilia will pain worked up for infertility in [facility]. She was started on 81 mg aspirin (4) Female infertility: Comment: having IVF in October at [facility],(states IUI and IVF did not work, then got miscarried genetics studies said it was female, then she had ectopic, thin went for full eval [place] [facility] [place] was this past year, currently desires contraception (09/26/23.) was told she had clotting disorder and [place], has her labs in her phone. Code(s): N97.9 - Female infertility, unspecified Plan: As per HPI patient got infertility workup in [facility] and found to have a thrombophilia. She does have a family history of blood clotting disorder. She would like follow-up with Hematology here in the [place]. She is now on aspirin 81 mg daily (5) MDD (major depressive disorder), recurrent episode, moderate: Code(s): F33.1 - Major depressive disorder, recurrent, moderate Plan: Patient's PHQ-9 score positive for major depression which has been a new were condition for her. She is interested in mental health medication and to health therapy. Will try to set her up with a mental health therapist CYNTH[place]. She is willing to try sertraline 50 mg and follow-up in 5 weeks to evaluate effectiveness. Orders: Orders Complete Blood Count no Diff Today D68.59 - Other primary thrombophilia Comprehensive [place]. Panel Fast Today Z13.1 - Encounter for screening for diabetes mellitus TSH reflex Free T4 Today E04.1 - Nontoxic single thyroid nodule Parathyroid Hormone Intact Today E04.1 - Nontoxic single thyroid nodule IRON PROFILE Today D50.9 - Iron deficiency anemia, unspecified, D68.59 - Other primary thrombophilia Referrals Counseling Referral F33.1 - Major depressive disorder, recurrent, moderate Hematology & Oncology Referral D68.59 - Other primary thrombophilia Medications: New sertraline 50 mg PO DAILY 30 days 30 tabs 2RF F33.1 - Major depressive disorder, recurrent, moderate Coding Level of Care Code Est Pt Prev Care [id number]([id number]) Diagnoses Annual physical exam Z00.00 Thyroid nodule E04.1 Thrombophilia D68.59 Female infertility N97.9 MDD (major depressive disorder), recurrent episode, moderate F33.1 Additional Codes JOSE-7 Assessment Billing - JOSE-7 Assessment Tool: JOSE-7 Assessment [id number] ([id number])
[2023-11-12 16:05] VITALS: BP 118/68; BMI 25.0
== END 2023-11-12 16:25 | disposition home or self-care (01) ==
PROVIDERS: PCP Physician Assistant; Visit Provider Physician Assistant
DX: Z00.00 Encounter for general adult medical examination without abnormal findings (principal); E04.1 Nontoxic single thyroid nodule; D68.59 Other primary thrombophilia; N97.9 Female infertility, unspecified; F33.1 Major depressive disorder, recurrent, moderate
CPT/HCPCS: 96127; 99395

== ENCOUNTER → 2024-03-30 07:55 | Outpatient (BNV) | payer OTHER, SELFPAY | PROVIDERS: PCP Physician Assistant; Referring Provider Physician Assistant; Visit Provider Internal Medicine Medical Oncology | DX: D68.59 Other primary thrombophilia (principal); D50.9 Iron deficiency anemia, unspecified | CPT/HCPCS: 99213 ==

== ENCOUNTER 2024-04-19 13:33 | Outpatient (AMB) | payer OTHER, SELFPAY ==
--- NOTE | 2024-04-19 13:42 | MHC.OFFWIV ---
Intake Vital Signs 04/19/24 13:43 Weight 188 lb BP 108/70 Blood Pressure Location Lt brachial Position Sitting Pulse 68 Pulse Source Pulse Oximeter Temp 98.5 F Temp Source Oral Pulse Oximetry (%) 98 Oxygen Delivery Method Room Air Intake Visit Reasons: EP cough, sore throat, nose bleed Intake Note: Patient here for cough, sore throat, bilat ear pain and SOB that has been present for 2 weeks Patient Tobacco Use Status: Never used Tobacco Allergies No Known Allergies [No Known Allergies*] Allergy (Verified 04/19/24 13:44) Do you need a note to return to daycare/school/sports/work: Yes HPI HPI Comments History of Present Illness Details History - The patient is a 28-year-old female presenting with cough, ear pain, and shortness of breath. - The cough has been ongoing for more than two weeks, accompanied by severe shortness of breath, prompting the need to sleep in an elevated position. Admits to sob with exertion, after coughing and with rest. - Fever was reported with a high of 103?F, recorded yesterday. - Denies asthma or smoking or vaping; flu vaccination for this year was not received. - Right-sided ear pain, with significant discomfort and possible infection indications. - Nasal congestion symptoms noted with prior non-saline nasal spray use with Afrin. - fatigue noted but consistent with the patient's baseline level as she has anemia and is typically fatigued. Physical Exam General: Cooperative, healthy appearing, comfortable and no acute distress Orientation/consciousness: Patient oriented x3 Limitations: No limitations Head: Normal to inspection Ears: Hearing grossly normal bilaterally, external ears normal and TM's normal left, RM on right with erythema, purulence and retraction Nose: Normal external nose present, Normal nares present and No nasal discharge present Face and sinus: Normal facial exam and Yes sinuses nontender Mouth: Normal oral and palatal mucosa present and moist mucous membranes Throat: Yes tonsils normal, Yes uvula midline. Posterior oropharynx erythema Eyes: Appearance normal, both eyes and all related structures Neck: Normal visual inspection Respiratory: dim/tight to auscultation bilaterally. Normal respiratory effort, able to speak in complete sentences, Actively coughing with each deep breath, no respiratory distress, not tachypneic, no tripod positioning and no use of accessory muscles. Cardiovascular: Regular rate and rhythm. Normal S1 and S2 Skin: No rashes or lesions noted Neuro: Patient oriented x3 Extremities: Normal to inspection and Yes no clubbing, cyanosis or edema PFSH Medical History Female infertility Anemia Surgical History History of right oophorectomy Family History Mother High blood pressure Pre-diabetes Father High blood pressure, Onset Age: 60 Heart attack Blood clotting disorder Maternal Grandmother Colon cancer, Onset Age: 73 Uterine cancer Family/Other Breast cancer Maternal Grandfather Blood clotting disorder Social History Housing: House Alcohol intake: never Patient Tobacco Use Status: Never used Tobacco e-Cigarette/Vaping Use: Never Used Second Hand Smoke Exposure: No service: No Current occupational status: employed 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 Sexual orientation: Straight/Heterosexual Gender identity: Female Cognitive needs: No Hearing needs: No Vision needs: Yes (glasses) Review of Systems Const All systems reviewed & are unremarkable except as noted in HPI and below Physical Exam Vital Signs: Last Vital Signs Temp 98.5 F 04/19/24 13:43 Pulse 68 04/19/24 13:43 BP 108/70 04/19/24 13:43 Pulse Ox 98 04/19/24 13:43 Oxygen Delivery Method Room Air 04/19/24 13:43 Results AMB Rapid Strep AMB Rapid Strep Negative Last Edit by DONI Rodríguez on 04/19/24 14:11 Results Reviewed Results Reviewed: Laboratory Last Values Strep Scn Rapid Clinic Negative 04/19/24 14:11 Assessment & Plan Assessment & Plan (1) URI, acute: Code(s): J06.9 - Acute upper respiratory infection, unspecified Plan: Rapid strep was negative. The treatment approach prioritizes managing the acute bronchitis and associated symptoms with prednisone to alleviate airway inflammation and improve breathing. An albuterol inhaler is provided to control episodes of shortness of breath, detailed instructions for which emphasize its use for symptomatic relief during coughing fits. To manage nasal congestion, fluticasone nasal spray is prescribed, supplemented by saline sprays to maintain nasal moisture and prevent mucosal drying. The patient is advised to cease using the Afrin nasal spray causing rebound congestion and instructed to use the newly prescribed regimen. A temporary work absence is suggested to facilitate recovery while pending results from respiratory virus testing. Prescriptions were sent to the pharmacy based on the discussed plan of care. Patient was informed and verbally consented to the use of an ambient scribe for clinic note documentation during this visit (2) Otitis media of right ear: Code(s): H66.91 - Otitis media, unspecified, right ear Qualifiers: Otitis media type: suppurative Chronicity: acute Recurrence: non-recurrent Spontaneous tympanic membrane rupture: without spontaneous rupture Qualified Code(s): H66.001 - Acute suppurative otitis media without spontaneous rupture of ear drum, right ear Plan: Acute otitis media of the right ear is treated with a course of amoxicillin, addressing the infection displaying symptoms of pain and redness. Orders: Orders SARS-CoV2/FLU/RSV Today J06.9 - Acute upper respiratory infection, unspecified AMB Rapid Strep Screen Today Z13.9 - Encounter for screening, unspecified Medications: New prednisone 40 mg (2 x 20 mg) PO DAILY 10 tabs 0RF amoxicillin 875 mg PO Q12H 14 tabs 0RF albuterol sulfate 90 mcg/actuation 2 puffs inhalation Q6H PRN 8.5 grams 0RF shortness of breath or wheezing or cough fluticasone propionate 50 mcg/actuation administer into each nostril 1 spray intranasal Q12H 16 grams 0RF Coding Level of Care Code Est Pt Level 4 (18405) Diagnoses URI, acute J06.9 Non-recurrent acute suppurative otitis media of right ear without spontaneous rupture of tympanic membrane H66.001 Otitis media type: suppurative Chronicity: acute Recurrence: non-recurrent Spontaneous tympanic membrane rupture: without spontaneous rupture
[2024-04-19 13:43] VITALS: BP 108/70; PULSE 68; TEMP 36.9; O2SAT 98
== END 2024-04-19 14:17 | disposition home or self-care (01) ==
PROVIDERS: PCP Physician Assistant; Visit Provider Physician Assistant
DX: J06.9 Acute upper respiratory infection, unspecified (principal); H66.001 Acute suppurative otitis media without spontaneous rupture of ear drum, right ear; Z13.9 Encounter for screening, unspecified

== ENCOUNTER 2024-04-19 13:33 | Outpatient (REF) | payer OTHER, SELFPAY ==
[2024-04-19 16:33] LABS: Influenza A PCR NEGATIVE (Negative); Influenza B PCR NEGATIVE (Negative); Resp Syncy Virus RNA Qual PCR NEGATIVE (Negative); SARS COV2 PCR INHOUSE NEGATIVE (Negative)
== END 2024-04-19 13:34 | disposition home or self-care (01) ==
LOC: HO.LNP 13:33
PROVIDERS: PCP Physician Assistant; Visit Provider Physician Assistant
DX: J06.9 Acute upper respiratory infection, unspecified (principal); H66.001 Acute suppurative otitis media without spontaneous rupture of ear drum, right ear
CPT/HCPCS: 0241U; 87880; 99212

== ENCOUNTER 2024-10-28 14:38 | Outpatient (AMB) | payer OTHER, SELFPAY ==
--- NOTE | 2024-10-28 14:41 | MHC.OFFVIS ---
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 Considering a future in the winter, history of infertility and ectopic . On POP's, She denies any contraindications to control such as: migraines with aura, history of DVT or pulmonary emboli, high blood pressure, liver disease, thrombolic disorders, Lupus, +YARED, breast cancer, or smoking. Currently is sexually active. She denies vaginal itching or irritation. STI screening offered; she accepts. She tries to eat healthy and stays active with exercise. FH ovarian, breast and colon cancer. Last pap smear 2021, negative. [facility] Medical History Female infertility Anemia Surgical History History of right oophorectomy Family History Mother High blood pressure Pre-diabetes Father High blood pressure, Onset Age: 60 Heart attack Blood clotting disorder Maternal Grandmother Colon cancer, Onset Age: 73 Uterine cancer Family/Other Breast cancer Maternal Grandfather Blood clotting disorder Prostate cancer Social History Housing: House Alcohol intake: never Patient Tobacco Use Status: Never used Tobacco e-Cigarette/Vaping Use: Never Used Second Hand Smoke Exposure: No service: No Current occupational status: employed 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 Sexual orientation: Straight/Heterosexual Gender identity: Female Cognitive needs: No Hearing needs: No Vision needs: Yes (glasses) Female Reproductive History Menstrual Date of last menstrual period: 10/07/24 control method: pills Total pregnancies: 3 Full term: 1 Number of Living Children: 1 Ab spontaneous: 1 Ectopics: 1 Date of last pap smear: 08/27/21 (neg) Review of Systems Const All systems reviewed & are unremarkable except as noted in HPI and below Reports as per HPI Eyes Reports no additional complaints ENT Reports no additional complaints Card Reports no additional complaints Resp Reports no additional complaints GI Reports as per HPI and Reports no additional complaints Reports as per HPI Musc Reports no additional complaints Skin/Breast Reports as per HPI Neuro Reports no additional complaints Psych Reports no additional complaints Endo Reports no additional complaints Rolf/Lymph Reports no additional complaints Aller/Immun Reports no additional complaints Physical Exam Vital Signs: Last Vital Signs BP 104/68 10/28/24 14:44 BMI result Body Mass Index 27.3 Const General: cooperative, healthy appearing, no acute distress, well developed and alert Orientation/consciousness: patient oriented x3 HEENT Head: Yes normal to inspection Eyes General: appearance normal, both eyes and all related structures Neck Neck: Yes normal visual inspection Thyroid: Thyroid normal Chest Chest palpation & inspection: normal inspection of the chest and other (no puckering, dimpling, peau de orange, retraction, discharge, masses) Breast/axilla inspection: normal inspection of the breasts Breast/axilla palpation: normal palpation of the breasts Resp Effort & Inspection: normal respiratory effort GI Inspection: Yes normal to inspection Palpation (GI): Soft to palpation Rectal Exam - Female: deferred General: Yes bladder normal to palpation External Female Exam: normal external appearance and normal appearance of the urethra Speculum Exam - Vagina: normal appearance of the vagina, normal palpation and normal vaginal discharge Speculum Exam - Cervix: normal appearance of the cervix and normal palpation Bimanual exam- vagina & uterus: normal bimanual exam, normal palpation, uterine size normal, bladder normal to palpation, normal palpation and non-tender Bimanual Exam- Adnexa, other: no masses Skin General skin exam: no rashes or lesions noted Rashes: no rashes Neuro General: patient oriented x3 Cognition (Neuro): normal cognition Extrem General: Yes normal to inspection Psych Attitude: cooperative Thought process: Normal thought process present Assessment & Plan Assessment & Plan (1) Encounter for well woman exam with routine gynecological exam: Code(s): Z01.419 - Encounter for gynecological examination (general) (routine) without abnormal findings Category: Medical Plan Discussed: Current recommendations for pap smears per ASCCP guidelines. Breast awareness and periodic breast exams. Maintain a healthy lifestyle including a well balanced diet and routine exercise. Continue with vitamins and folic acid. Report any missed menses once stopping control. Due to high-risk would need to be seen at [facility] for entire care. control hormone use warnings: go to ER if and loss of vision, blindness, severe headache, chest pain or difficulty breathing, severe abdominal pain, or any pain or swelling in an extremity. Patient verbalizes understanding and agrees to the plan of care. She was given opportunity to ask questions and all questions were answered to the best of my ability. RTO in one year for annual filler picker examination. This note is constructed using voice recognition software. While every effort has been made to ensure accuracy, bushing and broach operator errors may have been included. Orders: Orders CT NG by PCR Vag/Cerv Today Z20.2 - Contact with and (suspected) exposure to infections with a predominantly sexual mode of transmission HPV High risk Today Z01.419 - Encounter for gynecological examination (general) (routine) without abnormal findings Bacterial Vaginosis Panel Today Z20.2 - Contact with and (suspected) exposure to infections with a predominantly sexual mode of transmission Pap Smear Today Z01.419 - Encounter for gynecological examination (general) (routine) without abnormal findings Medications: Refilled norethindrone (contraceptive) 0.35 mg PO DAILY 84 tabs 3RF Coding Level of Care Code Est Pt Prev Care 18-39y(38092) Diagnoses Encounter for well woman exam with routine gynecological exam Z01.419
[2024-10-28 14:44] VITALS: BP 104/68; BMI 27.3
== END 2024-10-28 15:32 | disposition home or self-care (01) ==
LOC: HO.HWS 14:38
PROVIDERS: PCP Physician Assistant; Visit Provider Advanced Practice Midwife
DX: Z01.419 Encounter for gynecological examination (general) (routine) without abnormal findings (principal)
CPT/HCPCS: 99395; 99459

== ENCOUNTER 2024-10-28 14:38 | Outpatient (REF) | payer OTHER, SELFPAY | END 2024-10-28 14:39 | disposition home or self-care (01) | LOC: HO.LNP 14:38 | PROVIDERS: PCP Physician Assistant; Visit Provider Advanced Practice Midwife | DX: Z01.419 Encounter for gynecological examination (general) (routine) without abnormal findings (principal); Z20.2 Contact with and (suspected) exposure to infections with a predominantly sexual mode of transmission | CPT/HCPCS: 87626; 88175; 99395 ==

== ENCOUNTER 2024-10-28 15:24 | Outpatient (REF) | payer OTHER, SELFPAY ==
[2024-10-28 17:08] LABS: Bacterial Vaginosis PCR NEGATIVE (Negative); Candida Group PCR DETECTED (Not Detect); Candida glab krusei PCR NOT DETECTED (Not Detect); Trichomonas vaginalis PCR NOT DETECTED (Not Detect)
[2024-10-28 17:40] LABS: CT PCR NOT DETECTED (Not Detect.); NG PCR NOT DETECTED (Not Detect.)
== END 2024-10-28 15:25 | disposition home or self-care (01) ==
LOC: HO.LAB 15:24
PROVIDERS: Visit Provider Advanced Practice Midwife
DX: Z20.2 Contact with and (suspected) exposure to infections with a predominantly sexual mode of transmission (principal); Z11.3 Encounter for screening for infections with a predominantly sexual mode of transmission; Z11.8 Encounter for screening for other infectious and parasitic diseases
CPT/HCPCS: 81515; 87491; 87591